=== PATIENT | male | born 1995 | race American Indian/Alaskan Native ===

== ENCOUNTER 2022-03-20 09:47 | Emergency (ER) | payer OTHER ==
[2022-03-20] MEDS ORDERED: ONDANSETRON 4 MG ODT TAB PO ONE (13:00)
[2022-03-20] MEDS ORDERED: MORPHINE 4 MG/1 ML INJ IM ONE (13:00)
[2022-03-20 13:29] LABS: Hematocrit 49.5 % (35.5-45.6); Hemoglobin 16.8 gm/dl (11.8-15.2); Mean Corpuscular HGB Conc 34 % (32-34); Mean Corpuscular Volume 98 fl (84-94); Platelet Count 180 K/mm3 (140-440); Red Blood Count 5.07 M/mm3 (3.65-5.03)
[2022-03-20 13:58] LABS: Alanine Aminotransferase 19 units/L (7-56); Albumin 5.3 g/dL (3.9-5); BUN/Creatinine Ratio 21; Blood Urea Nitrogen 17 mg/dL (9-20); Calcium 10.5 mg/dL (8.4-10.2); Hemolysis Index 15
--- NOTE | 2022-03-20 14:09 | Cat Scan Report ---
CT ABDOMEN AND PELVIS WITHOUT CONTRAST HISTORY: abdominal pain COMPARISON: None TECHNIQUE: Routine abdominal and pelvic CT exam performed without contrast. Lack of intravenous cont rast limits evaluation of the vascular and solid organs.. All CT scans at this location are performed using CT dose reduction for ALARA by means of automated exposure control. FINDINGS: CT ABDOMEN: Lung Bases: No significant abnormality. Liver: No significant abnormality. Biliary: No significant abnormality. Spleen: No significant abnormality. Unenlarged. Pancreas: No significant abnormality. Adrenals: No significant abnormality. Kidneys: No significant abnormality. Lymphatics: No lymphadenopathy. Vasculature: No significant abnormality. Bowel/Peritoneum: No significant abnormality. No free air. No free fluid. Normal appendix. CT PELVIC: : No significant abnormality. Lymphatics: No lymphadenopathy. Osseous Structures: No aggressive appearing osseous lesions. Additional Findings: None IMPRESSION: 1. No significant abnormality. Signer Name: Edy Aguilar MD Signed: 03/20/2022 2:04 PM Workstation Name: [id number]
--- NOTE | 2022-03-20 14:22 | Emergency Department Report ---
ED Abdominal Pain HPI - General Chief Complaint: Rectal Pain Stated Complaint: LOSS ENERGY/IRRATION BUTTOCKS/RECTAL BLEEDING Time Seen by Provider: 03/20/22 12:47 Source: patient Mode of arrival: Ambulatory Limitations: No Limitations - History of Present Illness Initial Comments: 26-year-old black male with no past medical history presents to the emergency department for evaluation of 2-week history of blood in stools, abdominal pain, fatigue, and weakness. He states that whenever he has a bowel movement he has pain to his rectum associated with blood streaking in his stools. He states that he started to have abdominal pain a few days ago that is intermittent and 10 out of 10. He denies fever, nausea, vomiting, diarrhea, and penile discharge . MD Complaint: abdominal pain -: Gradual, week(s) Location: diffuse (To) Radiation: none Migration to: no migration Severity scale (0 -10): 10 Quality: aching Consistency: intermittent Associated Symptoms: denies: nausea, vomiting, diarrhea, fever, chills, dysuria, hematemesis, hematochezia, melena, hematuria, anorexia, syncope - Related Data Allergies Allergy/AdvReac Type Severity Reaction Status Date / Time No Known Allergies Allergy Unverified 03/20/22 10:05 ED Review of Systems ROS: Stated complaint: LOSS ENERGY/IRRATION BUTTOCKS/RECTAL BLEEDING Other details as noted in HPI Comment: All other systems reviewed and negative Constitutional: denies: chills, fever ENT: denies: congestion Respiratory: denies: cough, shortness of breath, SOB with exertion, SOB at rest, stridor, wheezing Cardiovascular: denies: chest pain, palpitations, dyspnea on exertion, orthopnea, edema, syncope, paroxysmal nocturnal dyspnea Gastrointestinal: abdominal pain. denies: nausea, vomiting, diarrhea, hematemesis, melena, hematochezia Genitourinary: denies: urgency, dysuria, frequency, hematuria, discharge, testicular pain Musculoskeletal: denies: back pain Skin: denies: rash, lesions Neurological: denies: headache, weakness, numbness, paresthesias, abnormal gait, vertigo Psychiatric: denies: anxiety Hematological/Lymphatic: denies: easy bleeding, easy bruising ED Physical Exam - General Limitations: No Limitations General appearance: alert, in no apparent distress - Head Head exam: Present: atraumatic, normocephalic - Eye Eye exam: Present: normal appearance. Absent: conjunctival injection - Neck Neck exam: Present: normal inspection, full ROM. Absent: tenderness, men ingismus, lymphadenopathy - Respiratory Respiratory exam: Present: normal lung sounds bilaterally. Absent: respiratory distress, wheezes, rales, rhonchi, stridor, chest wall tenderness - Cardiovascular Cardiovascular Exam: Present: regular rate, normal heart sounds - GI/Abdominal GI/Abdominal exam: Present: soft, normal bowel sounds. Absent: distended, tenderness, guarding, rebound, rigid - Rectal Rectal exam: Present: normal inspection, normal rectal tone, heme (-) stool, hemorrhoids (Internal) - Extremities Exam Extremities exam: Present: normal inspection, full ROM, normal capillary refill. Absent: tenderness, pedal edema, joint swelling, calf tenderness - Back Exam Back exam: Present: normal inspection, full ROM. Absent: tenderness, CVA tenderness (R), CVA tenderness (L), vertebral tenderness - Neurological Exam Neurological exam: Present: alert, oriented X3, normal gait - Psychiatric Psychiatric exam: Present: normal affect, normal mood - Skin Skin exam: Present: warm, dry, intact, normal color ED Course Vital Signs 03/20/22 09:58 Temperature 98.2 F Pulse Rate 76 Respiratory 18 Rate Blood Pressure 118/74 [Right] O2 Sat by Pulse 97 Oximetry ED Medical Decision Making - Lab Data Result diagrams: 03/20/22 13:07 03/20/22 13:07 - Radiology Data Radiology results: report reviewed, image reviewed CT abdomen and pelvis without contrast: FINDINGS: CT ABDOMEN: Lung Bases: No significant abnormality. Liver: No significant abnormality. Biliary: No significant abnormality. Spleen: No significant abnormality. Unenlarged. Pancreas: No significant abnormality. Adrenals: No significant abnormality. Kidneys: No significant abnormality. Lymphatics: No lymphadenopathy. Vasculature: No significant abnormality. Bowel/Peritoneum: No significant abnormality. No free air. No free fluid. Normal appendix. CT PELVIC: : No significant abnormality. Lymphatics: No lymphadenopathy. Osseous Structures: No aggressive appearing osseous lesions. Additional Findings: None IMPRESSION: 1. No significant abnormality. - Medical Decision Making 26-year-old black male with no past medical history presents to the emergency department for evaluation of 2-week history of blood in stools, abdominal pain, fatigue, and weakness. He states that whenever he has a bowel movement he has pain to his rectum associated with blood streaking in his stools. He states that he started to have abdominal pain a few days ago that is intermittent and 10 out of 10. He denies fever, nausea, vomiting, diarrhea, and penile discharge Patient noted to have internal hemorrhoid on rectal exam, but no gross abnormalities noted. No abnormalities noted on labs, H&H within normal limits. CT scan without any acute abnormalities noted. Stool negative for occult blood. Blood streaking in stool likely related to internal hemorrhoid. Pain improved after medication. Patient does not appear in any acute distress. He is advised to follow-up with his primary care provider for further evaluation and management. He is advised to return to the emergency department for any concerning symptoms. He verbalized understanding of and agreement with plan of care. Critical care attestation.: If time is entered above; I have spent that time in minutes in the direct care of this critically ill patient, excluding procedure time. ED Disposition Clinical Impression: Hemorrhoid Qualifiers: Hemorrhoid type: unspecified Qualified Code(s): K64.9 - Unspecified hemorrhoids Abdominal pain Qualifiers: Abdominal location: generalized Qualified Code(s): R10.84 - Generalized abdominal pain Disposition: 01 HOME / SELF CARE / HOMELESS Is pt being admited?: No Does the pt Need Aspirin: No Condition: Stable Instructions: Abdominal Pain, Adult, [id number], Hemorrhoids, [id number] Additional Instructions: Use ibuprofen and Tylenol as needed for pain. Follow-up with primary care provider for further evaluation and management. Return to the emergency department as needed. Referrals: YOBANY YAN MD [Primary Care Provider] - 3-5 Days REGAN HERNANDEZ MD [Staff Physician] - 3-5 Days Forms: Work/School Release Form(ED) Time of Disposition: 14:25
[2022-03-20 14:39] VITALS: BP 124/89
== END 2022-03-20 14:40 | disposition home or self-care (01) ==
LOC: ED 09:47
DX: K64.9 Unspecified hemorrhoids (principal); R10.9 Unspecified abdominal pain
CPT/HCPCS: 36415; 74176; 80053; 82271; 83690; 85027; 96372; 99284; J2270; J3490; Q0162